=== PATIENT | female | born 1965 | race Caucasian/White ===

== ENCOUNTER 2017-01-19 23:04 | Emergency (ER) | payer BC ==
[~2017-01-19] VITALS: Ht 157.5 cm; Wt 81.2 kg
[~2017-01-19 23:04] MED LIST: BACTRIM,SEPT1 TABLET PO; BENADRYL ALLERG25 MG PO; BENAZAPRIL; CITALOPRAM HBR20 M1 PO; Cozaar PO; DOXYCYCLINE HY100 MG PO; FIORICET,ESG1 TABLET PO; FLEXERIL10 MG PO; FLOMAX0.4 MG PO; FLORASTOR250 MG PO; HYDROCHLOROTH12.5 M3 PO; HYDROCODON-ACE1 EAC5 PO; IONAMIN,FASTIN30 MG PO; KENALOG,ARISTOC15 G2 TP; LOTENSIN10 MG PO; MEDROL DOSEPAK4 MG PO; METFORMIN HCL500 MG PO; MORPHINE SULFAT30 M4 PO; MULTI VITAMIN1 EACH PO; OMEGA-3 SOFTGE1 EACH PO; OMEPRAZOLE40 M1 PO; PANTOPRAZOLE SO40 MG PO; PERCOCET 5/31 TABLET PO; PREDNISONE10 M1 PO; PROMETHAZINE HC25 M1; PROMETHAZINE HC25 M1 PO; PYRIDIUM100 MG PO; VITAMIN B12 100MCG PO; VITAMIN D1000 UNIT PO; ZOFRAN4 MG PO; predniSONE PO
[2017-01-20 00:25] LABS: ADD MIUA? NO; BILIRUBIN NEGATIVE; BLOOD NEGATIVE; COLOR YELLOW ((YELLOW)); GLUCOSE (STRIP) NEGATIVE; KETONES NEGATIVE; LEUKOCYTES NEGATIVE; NITRITE NEGATIVE; PROTEIN (STRIP) NEGATIVE; SPECIFIC GRAVITY 1.021 (1.000-1.030); UCUL ADDED? NO; UROBILINOGEN 0.2 MG/DL (0.2-1.0)
[2017-01-20 01:18] LABS: HEMATOCRIT 37.1 % (36.0-46.0); MCH 28.6 PG (29.0-34.0); MCHC 32.9 G/DL (30.0-36.0); MCV 87.1 FL (83-99); MEAN PLAT.VOLUME 9.8 uM^3 (9.5-12.4); PLATELET COUNT 215 K/uL (156-360); RBC DIS.WIDTH-CV 13.4 % (11.8-14.6); RBC DIS.WIDTH-SD 42.7 % (39-53); RED BLOOD COUNT 4.26 M/uL (3.80-5.20); WHITE BLOOD COUNT 7.5 K/uL (4.1-10.2)
[2017-01-20] MEDS ORDERED: ZOFRAN ODT4 MG PO (01:30)
[2017-01-20] MEDS ORDERED: ULTRAM50 MG PO (01:30)
[2017-01-20 01:49] VITALS: BP 143/75
[2017-01-20 01:51] LABS: CHLORIDE 109 mEq/L (99-109); POTASSIUM 3.7 mEq/L (3.7-5.4); SODIUM 142 mEq/L (136-147)
[2017-01-20 01:53] LABS: GLUCOSE 94 mg/dL (70-99)
[2017-01-20 01:54] LABS: ANION GAP 11 MEQ/L (2-14)
[2017-01-20 01:57] LABS: GFR ESTIMATE (CALCULATED) > 59 mL/min/
[2017-01-20 01:58] LABS: UREA NITROGEN (BUN) 17 mg/dL (9-23)
== END 2017-01-20 02:06 | disposition home or self-care (01) ==
LOC: EME 23:04 → EXP 23:04
PROVIDERS: Physician Assistant
DX: R10.9 Unspecified abdominal pain (principal); Z87.442 Personal history of urinary calculi; E11.9 Type 2 diabetes mellitus without complications; I10 Essential (primary) hypertension; K21.9 Gastro-esophageal reflux disease without esophagitis; Z98.1 Arthrodesis status
CPT/HCPCS: 74176; 80048; 81003; 85027; 99281; 99285; J2270; J2405; J7030